=== PATIENT | male | born 1965 | race Caucasian/White ===

== ENCOUNTER → 2019-02-25 | Outpatient (CLI) | payer MEDICARE ==
[2019-02-25 07:24] LABS: Basophils # (A) 0.1 k/uL (0-0.2); Basophils % (A) 1 %; Eosinophils # (A) 0.4 k/uL (0-0.7); Eosinophils % (A) 8 %; HCT 43.2 % (39.0-53.0); Lymphocytes # (A) 1.5 k/uL (1.0-4.8); Lymphocytes % (A) 33 %; MCH 29.9 pg (25.0-35.0); MCHC 32.4 g/dL (31.0-37.0); MCV 92.1 fL (80.0-100.0); Mean Platelet Volume 7.7; Monocytes # (A) 0.3 k/uL (0-1.0); Monocytes % (A) 6 %; Neutrophils # (A) 2.3 k/uL (1.3-7.7); Neutrophils % (A) 50 %; Platelet Count 280 k/uL (150-450); RBC 4.69 m/uL (4.30-5.90); RDW 13.1 % (11.5-15.5); WBC 4.6 k/uL (3.8-10.6)
[2019-02-25 11:55] LABS: Albumin 4.5 g/dL (3.80-4.90); Albumin/Globulin Ratio 1.96 (1.60-3.17); Anion Gap 5.9 mmol/L (4.00-12.00); Calcium 9.3 mg/dL (8.7-10.3); Carbon Dioxide 30.1 mmol/L (21.6-31.8); Globulin 2.3 g/dL (1.6-3.3); LDL Cholesterol,Calculated 136.2 mg/dL (0.0-131.0); Potassium 4.5 mmol/L (3.5-5.5); Total Bilirubin 0.8 mg/dL (0.3-1.2); Total Protein 6.8 g/dL (6.2-8.2); VLDL Calculation 11.8 mg/dL (5.00-40.00)
[2019-02-25 12:04] LABS: T4, Free (Free Thyroxine) 1.3 ng/dL (0.80-1.80)
== END | disposition home or self-care (01) ==
LOC: LABWHC1 06:34
PROVIDERS: ATTEND Internal Medicine Geriatric Medicine
DX: E78.5 Hyperlipidemia, unspecified (principal); K22.70 Barrett's esophagus without dysplasia; R73.9 Hyperglycemia, unspecified; I10 Essential (primary) hypertension
CPT/HCPCS: 36415; 80053; 80061; 83735; 84439; 84443; 85025

== ENCOUNTER → 2019-02-28 | Outpatient (CLI) | payer MEDICARE ==
--- NOTE | 2019-02-28 10:31 | US ---
EXAMINATION TYPE: US renal artery duplex complet DATE OF EXAM: 02/28/2019 COMPARISON: NONE CLINICAL HISTORY: I10 Hypertension. MEASUREMENTS: RENAL SIZE: Rt Kidney: 11.5 x 4.6 x 5.1cm Lt Kidney: 11.2 x 5.8 x 5.5cm RESISTANCE INDEX Right: 0.64 Left: 0.66 RA/AO RATIO (< 3.5 ) Right: 2.0 Left: 1.6 RA VELOCITY ( < 180 cm/s) Right: 139 Left: 111 Atherosclerotic changes noted in distal aorta. Probable right renal mass measuring 1.5 x 1.7 x 1.7cm Right renal cyst measuring 3.4 x 3.2 x 3.3cm No evidence of renal artery stenosis. There is atherosclerotic change of the abdominal aorta most prominent distal aspect right before bifu rcation. There is suspicious isoechoic to slightly hyperechoic bulging right renal cortex mid to slig htly lower pole level. There is additional 3.3 cm simple appearing cyst upper pole level right kidney . Velocity measurements are satisfactory without increased velocities identified in the right kidney. Left kidney shows no suspicious mass or hydronephrosis. Velocity measurements are satisfactory. IMPRESSION: No ultrasound evidence for hemodynamically significant focal renal artery stenosis. Cannot exclude 1. 7 cm solid mass or neoplasm right kidney mid to lower pole level. Advise follow-up renal protocol con trast-enhanced CT or MRI to further evaluate.
== END | disposition home or self-care (01) ==
LOC: RADUSWWP 07:47
PROVIDERS: ATTEND Internal Medicine Geriatric Medicine
DX: I10 Essential (primary) hypertension (principal)
CPT/HCPCS: 93975

== ENCOUNTER → 2019-06-29 | Outpatient (CLI) | payer MEDICARE ==
--- NOTE | 2019-06-29 09:19 | CT ---
EXAMINATION TYPE: CT abdomen pelvis wo con DATE OF EXAM: 06/29/2019 COMPARISON: None HISTORY: 53-year-old male Renal Stone CT DLP: 543.9 mGycm. Automated exposure control for dose reduction was used. TECHNIQUE: Contiguous axial scanning of the abdomen and pelvis without IV contrast. Coronal and sagit bibiana reconstructions performed. FINDINGS: Heart normal size without pericardial effusion. Lung bases clear without pleural effusion. Small hiatal hernia. Numerous hypodense lesions within the liver, largest measuring 2.8 cm. The largest lesions show fluid attenuation compatible with cysts. Other lesions are too small fracture CT characterization but also likely represent cysts. Noncontrast appearance of the gallbladder, adrenal glands, spleen, and pancreas within normal limits. 3 mm nonobstructive left renal calculus. No hydronephrosis on either side. There is focal 1.5 cm contour lobulation along the anterolateral aspect of the right mid kidney showi ng soft tissue density. An additional 4.4 cm posterior right renal cyst and a 3 mm nonobstructive mid to lower pole right renal calculus. No dilated small bowel, free fluid, or free air. Scattered mild atherosclerotic calcifications throug hout the abdominal aorta and iliac arteries. Mild stool burden. Occasional left-sided colonic diverticulosis. No pericolonic inflammatory change. Normal appendix located in the pelvis. Scattered nonenlarged and borderline sized mesenteric lymph nodes measure up to 7 mm. Bladder is collapsed but shows moderate wall thickening circumferentially. Prostate gland mildly enla rged 4.5 cm wide. No abnormal fluid collection in the pelvis or pelvic lymphadenopathy. Bones: Posterior lumbar fusion at L4-L5. IMPRESSION: 1. Unable to exclude a 1.5 cm solid mass lateral right mid kidney. RCC should be excluded. Renal mas s protocol CT or MRI is advised. 2. A nonobstructive renal calculus on each side measuring 4 and 3 mm. 3. Additional 4.4 cm posterior right renal cyst. 4. Scattered left-sided colonic diverticulosis without acute diverticulitis. 5. Moderate circumferential bladder wall thickening could relate to chronic bladder wall hypertrophy or cystitis. 6. Small hiatal hernia. 7. Numerous hypodense lesions in the liver measuring up to 2.8 cm, likely cysts. If MRI is performed for the renal lesion, these will also be more definitively characterized.
== END | disposition home or self-care (01) ==
LOC: RADCTMAIN 07:55
PROVIDERS: ATTEND Internal Medicine Geriatric Medicine
DX: N20.0 Calculus of kidney (principal); K44.9 Diaphragmatic hernia without obstruction or gangrene; N28.1 Cyst of kidney, acquired; K57.30 Diverticulosis of large intestine without perforation or abscess without bleeding; N32.89 Other specified disorders of bladder
CPT/HCPCS: 74176

== ENCOUNTER → 2019-08-03 | Outpatient (CLI) | payer MEDICARE ==
--- NOTE | 2019-08-03 09:53 | US ---
EXAMINATION TYPE: US abdomen complete DATE OF EXAM: 08/03/2019 COMPARISON: CT of 06/29/2019, US 02/28/2019 CLINICAL HISTORY: R10.9 abdominal pain. Follow up liver and renal cysts, renal calcifications EXAM MEASUREMENTS: Liver Length: 13.6 cm Gallbladder Wall: 0.2 cm CBD: 0.5 cm Spleen: 10.7 cm Right Kidney: 11.5 x 6.0 x 5.1 cm Left Kidney: 11.6 x 5.1 x 5.8 cm Pancreas: wnl Liver: multiple liver cysts are noted, with largest cluster medial right lobe = 2.1 x 2.1 x 1.1cm. T hese demonstrate good through transmission. Gallbladder: wnl Evidence for sonographic Sexton's sign: no CBD: wnl Spleen: wnl Right Kidney: superior lateral pole cyst = 5.2 x 3.0 x 3.2cm; mid cortical calcification is noted = 0.5 x 0.3 x 0.2cm; lobular cortex mid medial pole is observed. Left Kidney: hyperechoic parallel lines are noted mid pole at cortex and suggests vessel wall calcif ications Upper IVC: wnl Abd Aorta: ectatic appearance, but size is wnl; hyperechoic intimal wall changes are noted distally and into common iliac arteries. There is no evidence of cholelithiasis. Common bile duct is unremarkable. The visualized portions o f the pancreas are homogenous. The spleen is unremarkable. Kidneys are symmetric and free of hydron ephrosis. IMPRESSION: Benign-appearing hepatic and renal cysts. There is a 5 mm nonobstructing right renal calc ulus without hydronephrosis of either kidney.
== END ==
LOC: RADUSWWP 07:56
PROVIDERS: ATTEND Internal Medicine Geriatric Medicine
DX: N28.1 Cyst of kidney, acquired (principal); N20.0 Calculus of kidney; K76.89 Other specified diseases of liver
CPT/HCPCS: 76700

== ENCOUNTER → 2025-02-28 | Outpatient (CLI) | payer MEDICARE ==
--- NOTE | 2025-02-28 13:28 | XR ---
EXAMINATION TYPE: XR thoracic spine complete DATE OF EXAM: 02/28/2025 12:56 PM COMPARISON: None CLINICAL INDICATION: Male, 59 years old with history of M54.50 Low back pain; PHH, pain TECHNIQUE: XR thoracic spine complete views of the spine in Frontal, swimmers and lateral projections . FINDINGS: No evidence of acute fracture. There is scattered multilevel disk space narrowing without loss of ve rtebral body height. There is normal alignment of the thoracic vertebral bodies. Scattered osteophyte formation along the anterior and lateral aspects of the vertebral bodies. Neural foramen are patent given limitations of this exam. Spinal canal appears patent. IMPRESSION: 1. No acute osseous pathology. 2. 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 [facility], , 02/28/2025 1:25 PM
== END | disposition home or self-care (01) ==
LOC: RADXRMAIN 12:23
PROVIDERS: ATTEND Internal Medicine Geriatric Medicine
DX: M47.814 Spondylosis without myelopathy or radiculopathy, thoracic region (principal)
CPT/HCPCS: 72072